=== PATIENT | female | born 1995 | race Caucasian/White ===

== ENCOUNTER → 2018-02-17 | Outpatient (REF) | payer OTHER ==
[2018-02-17 18:14] LABS: PLATELET COUNT, AUTOMATED 422 K/uL (150-450)
== END ==
PROVIDERS: ATTEND Nurse Practitioner Family
DX: R11.0 Nausea (principal); R19.7 Diarrhea, unspecified
CPT/HCPCS: 82040; 82247; 82274; 82310; 82374; 82435; 82565; 82947; 83630; 84075; 84132; 84155; 84295; 84450; 84460; 84520; 85025; 87045; 87177

== ENCOUNTER 2018-04-04 19:08 | Emergency (ER) | payer OTHER ==
--- NOTE | 2018-04-04 19:12 | ER Report ---
History and Physical Time Seen By MD: 19:13 HPI/ROS CHIEF COMPLAINT: Strep throat, vomiting HISTORY OF PRESENT ILLNESS: 22-year-old female presents ambulatory to the ER with vomiting all afternoon. She's been unable to keep anything down. She's been diagnosis strep pharyngitis. She's on amoxicillin. Patient and her mom are present. They report that she's been sick since nearly the beginning of school his recurrent episodes of strep dermatitis. They're wondering if consult with ENT as appropriate. Patient notes no photophobia or stiff neck. Patient denies diarrhea. REVIEW OF SYSTEMS: Respiratory: No cough, no dyspnea. Cardiovascular: No chest pain, no palpitations. Gastrointestinal: As above Musculoskeletal: No back pain. Allergies: Coded Allergies: No Known Drug Allergies (Unverified , 04/04/18) Home Meds Active Scripts Ondansetron Hcl (ZOFRAN) 4 Mg Tablet, 4 MG PO Q6H PRN for NAUSEA/VOMITING, #12 Prov:ADALBERTO HO DO 04/04/18 Hydrocodone Bit/Acetaminophen (HYDROCODON-ACETAMINOPHEN 5-325) 1 Each Tablet, 1 EACH PO Q4-6H PRN for PAIN, #10 TAKE ONE TABLET BY MOUTH EVERY 4-6 HOURS NEEDED FOR PAIN Prov:ADALBERTO HO DO 04/04/18 Reported Medications [ Control] No Conflict Check 04/04/18 Reviewed Nurses Notes: Yes Old Medical Records Reviewed: Yes Constitutional Vital Sign - Last 24 Hours 04/04/18 19:15 Temp 98.1 Pulse 104 Resp 12 B/P (MAP) 122/75 Pulse Ox 97 O2 Delivery Room Air Intake and Output 04/04/18 04/04/18 04/05/18 14:58 22:58 06:58 Intake Total 1000 ml Balance 1000 ml Physical Exam General Appearance: The patient is alert, has no immediate need for airway protection and no current signs of toxicity. Slightly pale appearing, skin, warm and dry, vital signs stable, afebrile HEENT: Pupils equal and round no injection. TMs normal, TMJs nontender, oropharynx with tonsillar hypertrophy and exudate noted. Consistent with acute tonsillitis. The right tonsil is larger than the left. No evidence of peritonsillar abscess Respiratory: Chest is non tender, lungs are clear to auscultation. Cardiac: regular rate and rhythm Gastrointestinal: Abdomen is soft and non tender, no masses, bowel sounds normal. Musculoskeletal: Neck: Neck is supple and non tender. Extremities have full range of motion and are non tender. Skin: No rashes or lesions. DIFFERENTIAL DIAGNOSIS: After history and physical exam differential diagnosis was considered for vomiting, adverse reaction to medication, vomiting secondary to strep pharyngitis. Medical Decision Making ED Course/Re-evaluation Clinical Indication for ER IV: Hydration, IV Access ED Course Patient was admitted to an examination room. H&P was done. The differential diagnoses was considered. Patient started been diagnosed with strep pharyngitis. She is on amoxicillin for cheese vomiting unable to keep her medications down. Patient's treated with IV fluid hydration with 1 L of normal saline, Zofran, Decadron, Toradol 30 motor grams fentanyl 50 g. On reevaluation she feels much better. She is given a popsicle, is able to consume at least A Popsicle without emesis. She feels much better. She would like to go home. She is discharged with a limited supply of Zofran, and hydrocodone. She is provided information to follow up with ENT, Dr. Blayne Domingo. Patient advised to continue ibuprofen 600 mg 3 times daily. Decision to Disposition Date: Apr 04, 2018 Decision to Disposition Time: 20:22 Depart Departure Latest Vital Signs Vital Signs Date Time Temp Pulse Resp B/P (MAP) Pulse Ox O2 Delivery O2 Flow Rate FiO2 04/04/18 19:15 98.1 104 12 122/75 97 Room Air Impression: Primary Impression: Acute pharyngitis Additional Impression: Vomiting Condition: Improved Disposition: HOME OR SELF-CARE Referrals: BLAYNE DOMINGO JR, MD [facility] Ondansetron Hcl (ZOFRAN) 4 Mg Tablet 4 MG PO Q6H PRN for NAUSEA/VOMITING, #12 Prov: ADALBERTO HO DO 04/04/18 Hydrocodone Bit/Acetaminophen (HYDROCODON-ACETAMINOPHEN 5-325) 1 Each Tablet 1 EACH PO Q4-6H PRN for PAIN, #10 TAKE ONE TABLET BY MOUTH EVERY 4-6 HOURS NEEDED FOR PAIN Prov: ADALBERTO HO DO 04/04/18 Patient Instructions: Acute Nausea and Vomiting (ED), Strep Throat (ED) Additional Instructions: Continue ibuprofen 200 mg 3 tablets 3 times a day Encourage fluid intake, especially popsicles, ice cream Follow-up with ENT, Dr. Blayne Domingo next week Return to the ER for any worsening Problem Qualifiers Primary Impression: Acute pharyngitis Pharyngitis/tonsillitis etiology: streptococcus Qualified Codes: J02.0 - Streptococcal pharyngitis Additional Impression: Vomiting Vomiting type: unspecified Vomiting Intractability: intractable Nausea presence: with nausea Qualified Codes: R11.2 - Nausea with vomiting, unspecified ADALBERTO HO DO Apr 04, 2018 19:12
[2018-04-04 19:15] VITALS: BP 122/75
[2018-04-04] MEDS ORDERED: DEXAMETHASONE SOD PHOS 10MG/ML IVP ONE (19:30)
[2018-04-04] MEDS ORDERED: KETOROLAC 30 MG/ML VIAL IVP ONE (19:30)
[2018-04-04] MEDS ORDERED: NS(*) 0.9% 1000 ML BAG 1,000 ML IV ONE (19:30)
[2018-04-04] MEDS ORDERED: fentaNYL CITR 100 MCG/2 ML AMP IVP ONE (19:30)
[2018-04-04] MEDS ORDERED: ONDANSETRON 4 MG/2 ML VIAL IVP ONE (19:55)
[2018-04-04] MEDS ORDERED: ONDANSETRON 4 MG/2 ML VIAL ONE (19:56)
[2018-04-04] MEDS ORDERED: ACET/HYDROC 5/325MG TH ER ONLY 2 TAB/BOTTLE PO ONE (20:20)
[2018-04-04] MEDS ORDERED: ONDANSETRON 4 MG ODT TH SL ONE (20:20)
[2018-04-04] MEDS ORDERED: ONDA4TAB97 PO (20:23)
[2018-04-04] MEDS ORDERED: LOR5/325 PO (20:23)
[2018-04-04] MEDS ORDERED: BIRTH CONTROL (20:25)
== END 2018-04-04 20:49 | disposition home or self-care (01) ==
LOC: ER 19:44
DX: J02.0 Streptococcal pharyngitis (principal); R11.2 Nausea with vomiting, unspecified
CPT/HCPCS: 96374; 96375; 99284; J1100; J1885; J2405; J3010; J7030; S0119

== ENCOUNTER 2018-04-06 07:59 | Emergency (ER) | payer OTHER ==
[~2018-04-06 07:59] MED LIST: BIRTH CONTROL; LOR5/325 PO; ONDA4TAB97 PO
[2018-04-06] MEDS ORDERED: AMOX-362 PO (08:09)
[2018-04-06] MEDS ORDERED: DEXAMETHASONE SOD 4 MG/ML VIAL PO ONE (09:15)
[2018-04-06] MEDS ORDERED: IOPAMIDOL 76% 75 ML INFUS BTL 75 ML ONE (09:31)
[2018-04-06 09:50] LABS: PLATELET COUNT, AUTOMATED 364 K/uL (150-450)
[2018-04-06] MEDS ORDERED: CLINDAMYCIN 600 MG/4 ML 600 MG in NS(*) 0.9% 100 ML BAG 100 ML IVPB ONE (11:30)
--- NOTE | 2018-04-06 11:34 | RADIOLOGY IMAGING REPORT ---
FACILITY: [facility] - [place] PATIENT NAME: Paola Cason : 1995 MR: [id number] V: [id number] EXAM DATE: ORDERING PHYSICIAN: BETY BONILLA TECHNOLOGIST: Location: [facility] [place] Patient: Paola Cason : 1995 Visit/Account:[id number] Date of Sevice: 04/06/2018 EXAMINATION: CT neck with IV contrast HISTORY: Right-sided neck pain, strep pharyngitis TECHNIQUE: CT was obtained through the neck following IV contrast administration. Sagittal and co elvie reformatted images were generated. 75 mL of IV Isovue-370 injected. One of the following dose optimization techniques was utilized in the performance of this exam: autom ated exposure control; adjustment of the mA and/or kV according to patient size; or use of iterative reconstruction technique. Specific details can be referenced in the facility's radiology CT exam ope rational policy. COMPARISON: None. FINDINGS: Parotid/submandibular and thyroid glands: Normal. Pharyngeal and retropharyngeal soft tissues: Mild to moderate nasopharyngeal lymphoid hypertrophy. Bilateral moderate tonsillar pillar enlargement partially effaces the oropharyngeal airway. Bilateral small linear hypodense regions noted within the tonsillar pillars, right greater than left. Largest hypodense area in the right tonsillar pillar measures 1.5 cm transverse by 0.3 cm AP by 1.4 cm cranio caudad. 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 Larynx/glottis and airway: Normal. Lymph nodes: Multiple varying sized bilateral jugular chain lymph nodes a few of which are mildly enl arged for example in the right lower neck, axial image 59. Mildly enlarged right level 2 lymph node. Fatty hilum noted within a few of these lymph nodes. 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 Visualized orbits / brain: No significant finding. Upper chest: Normal. Bones/sinuses/mastoid air cells: Right maxillary sinus mucous retention cysts. Are slightly fused C2- 3 disc space, fused C2-3 facet joints and partially fused C2 and C3 spinous processes. IMPRESSION: Multiple linear small hypodensities in the right greater than left tonsillar pillars concerning for m icroabscesses the largest measuring 1.5 x 0.3 x 1.4 cm in the right tonsillar pillar. Moderate additional tonsillar pillar hypertrophy partially effaces the oropharyngeal airway. Multiple bilateral varying sized jugular chain lymph nodes a few of which are mildly enlarged which a re favored to be reactive. Results were called to BETY BONILLA on 04/06/2018 11:29 AM. Report Dictated By: Miguelangel Tsai MD at 04/06/2018 11:11 AM Report E-Signed By: Miguelangel Tsai MD at 04/06/2018 11:29 AM WSN:[id number]
[2018-04-06] MEDS ORDERED: CLINDAMYCIN(*) 600 MG/NS 50 ML 50 ML IVPB ONE (11:45)
[2018-04-06] MEDS ORDERED: CLIN-60 PO (12:34)
--- NOTE | 2018-04-06 12:36 | ER Report ---
History and Physical Time Seen By MD: 08:30 Hx. of Stated Complaint: PT REPORTS THROAT PAIN STARTED AT 0400 TODAY, RECENTLY DX WITH STREP THROAT, PT TAKING HYDROCODONE FOR PAIN HPI/ROS CHIEF COMPLAINT: Worsening sore throat HISTORY OF PRESENT ILLNESS: Patient is recently been diagnosed with strep pharyngitis on Thursday. She started taking amoxicillin and has taken 5 doses. She presents because she is feeling slightly worse with sore throat and difficulty tolerating fluids. She feels she has more swelling slightly more on the right than left. She has not had fevers. She is not vomiting. She is tolerating by mouth and secretions though minimally. She has not had change in urination. She has no chest pain or trouble breathing. REVIEW OF SYSTEMS: Constitutional: No fever, no chills. Eyes: No discharge. ENT: above Cardiovascular: No chest pain, no palpitations. Respiratory: No cough, no shortness of breath. Gastrointestinal: No abdominal pain, no vomiting. Genitourinary: no dysuria or discoloration Musculoskeletal: No back pain. Skin: No rashes. Neurological: No headache. Remainder of the 14 system rev: Yes Allergies: Coded Allergies: No Known Drug Allergies (Unverified , 04/06/18) Home Meds Active Scripts Clindamycin Hcl (CLEOCIN HCL) 150 Mg Capsule, 150 MG PO Q6H for 10 Days, #40 CAPSULE Prov:BETY BONILLA MD 04/06/18 Ondansetron Hcl (ZOFRAN) 4 Mg Tablet, 4 MG PO Q6H PRN for NAUSEA/VOMITING, #12 Prov:ADALBERTO HO DO 04/04/18 Hydrocodone Bit/Acetaminophen (HYDROCODON-ACETAMINOPHEN 5-325) 1 Each Tablet, 1 EACH PO Q4-6H PRN for PAIN, #10 TAKE ONE TABLET BY MOUTH EVERY 4-6 HOURS NEEDED FOR PAIN Prov:ADALBERTO HO DO 04/04/18 Reported Medications Amoxicillin (AMOXICILLIN) 500 Mg Capsule, PO BID, #15 CAPSULE 04/06/18 [ Control] No Conflict Check 04/04/18 Hx Substance Use Disorder: No Constitutional Vital Sign - Last 24 Hours 04/06/18 04/06/18 04/06/18 04/06/18 08:05 08:05 08:14 08:29 Temp 98.0 Pulse 80 74 77 Resp 16 B/P (MAP) 119/70 (86) 119/70 Pulse Ox 93 93 94 O2 Delivery Room Air 04/06/18 04/06/18 04/06/18 04/06/18 08:44 08:59 09:14 09:29 Pulse 83 75 74 71 Pulse Ox 93 95 94 96 04/06/18 04/06/18 04/06/18 04/06/18 09:44 09:59 10:04 10:18 Pulse 76 ??? 79 B/P (MAP) 103/68 (80) Pulse Ox 97 96 04/06/18 04/06/18 04/06/18 04/06/18 10:30 10:34 11:00 11:04 Pulse ??? 83 B/P (MAP) 102/68 (79) 112/68 (83) Pulse Ox 96 04/06/18 04/06/18 04/06/18 04/06/18 11:30 11:34 12:00 12:05 Pulse 85 78 B/P (MAP) 108/66 (80) 103/68 (80) Pulse Ox 96 95 04/06/18 04/06/18 04/06/18 04/06/18 12:20 12:30 12:35 12:50 Pulse 79 81 77 B/P (MAP) 109/72 (84) Pulse Ox 95 95 96 04/06/18 13:00 B/P (MAP) ???/??? (2135) Physical Exam General Appearance: The patient is alert, has no immediate need for airway protection and no signs of toxicity. Eyes: Pupils equal and round no pallor or injection. ENT, Mouth: Mucous membranes are moist. Tonsils 2+ bilaterally with exudates, no midwife practitioner, uvula midline. Bilat submandibluar lad. Slight ttp r side lateral neck. Respiratory: There are no retractions, lungs are clear to auscultation. Cardiovascular: borderline tachycardic Neurological: alert, oriented, moves all ext Skin: Warm and dry, no rashes. Musculoskeletal: Extremities are nontender, nonswollen and have full range of motion. DIFFERENTIAL DIAGNOSIS: After history and physical exam differential diagnosis was considered for midwife practitioner, lemierre's, or other complication of strep. Medical Decision Making Data Points Result Diagram: 04/06/1892904/06/18929 Laboratory Hematology Test 04/06/18 09:30 Red Blood Count 4.42 M/uL (4.17-5.56) Mean Corpuscular Volume 82.3 fL (80.0-96.0) Mean Corpuscular Hemoglobin 27.5 pg (26.0-33.0) Mean Corpuscular Hemoglobin Concent 33.4 g/dL (32.0-36.0) Red Cell Distribution Width 13.7 % (11.5-14.5) Mean Platelet Volume 6.9 fL (7.2-11.1) Neutrophils (%) (Auto) 60.7 % (39.4-72.5) Lymphocytes (%) (Auto) 30.4 % (17.6-49.6) Monocytes (%) (Auto) 7.5 % (4.1-12.4) Eosinophils (%) (Auto) 1.3 % (0.4-6.7) Basophils (%) (Auto) 0.1 % (0.3-1.4) Nucleated RBC Relative Count (auto) 0.1 /100WBC Neutrophils # (Auto) 5.7 K/uL (2.0-7.4) Lymphocytes # (Auto) 2.9 K/uL (1.3-3.6) Monocytes # (Auto) 0.7 K/uL (0.3-1.0) Eosinophils # (Auto) 0.1 K/uL (0.0-0.5) Basophils # (Auto) 0.0 K/uL (0.0-0.1) Nucleated RBC Absolute Count (auto) 0.01 K/uL Sodium Level 137 mmol/L (137-145) Potassium Level 3.8 mmol/L (3.5-5.0) Chloride Level 104 mmol/L (98-107) Carbon Dioxide Level 26 mmol/L (22-31) Blood Urea Nitrogen 13 mg/dl (7-18) Creatinine 0.80 mg/dl (0.52-1.04) Glomerular Filtration Rate Calc > 60.0 Random Glucose 86 mg/dl (75-110) Calcium Level 8.7 mg/dl (8.4-10.2) Chemistry Test 04/06/18 09:30 White Blood Count 9.4 k/uL (4.5-11.0) Red Blood Count 4.42 M/uL (4.17-5.56) Hemoglobin 12.1 g/dL (12.0-16.0) Hematocrit 36.3 % (34.0-47.0) Mean Corpuscular Volume 82.3 fL (80.0-96.0) Mean Corpuscular Hemoglobin 27.5 pg (26.0-33.0) Mean Corpuscular Hemoglobin Concent 33.4 g/dL (32.0-36.0) Red Cell Distribution Width 13.7 % (11.5-14.5) Platelet Count 364 K/uL (150-450) Mean Platelet Volume 6.9 fL (7.2-11.1) Neutrophils (%) (Auto) 60.7 % (39.4-72.5) Lymphocytes (%) (Auto) 30.4 % (17.6-49.6) Monocytes (%) (Auto) 7.5 % (4.1-12.4) Eosinophils (%) (Auto) 1.3 % (0.4-6.7) Basophils (%) (Auto) 0.1 % (0.3-1.4) Nucleated RBC Relative Count (auto) 0.1 /100WBC Neutrophils # (Auto) 5.7 K/uL (2.0-7.4) Lymphocytes # (Auto) 2.9 K/uL (1.3-3.6) Monocytes # (Auto) 0.7 K/uL (0.3-1.0) Eosinophils # (Auto) 0.1 K/uL (0.0-0.5) Basophils # (Auto) 0.0 K/uL (0.0-0.1) Nucleated RBC Absolute Count (auto) 0.01 K/uL Glomerular Filtration Rate Calc > 60.0 Calcium Level 8.7 mg/dl (8.4-10.2) ED Course/Re-evaluation ED Course Pt presents with known strep pharyngitis that is not improving and possibly worsening. Though findings bilateral on exam, symptoms worse on r; after considerations of r/b, I obtained CT to r/o midwife practitioner v lemierre; I discussed with radiologist; while possible 'microabscesses' as per radiologist, he states that none would be drainable. Given symtpoms and findings, will change to clindamycin for better bacterial coverage. Pt feels comfortable on d/c and is amenable to this plan. D/w pt's mother over phone as well. Pt very well appearing and understands SRP's. Decision to Disposition Date: Apr 06, 2018 Decision to Disposition Time: 12:30 Depart Departure Latest Vital Signs Vital Signs Date Time Temp Pulse Resp B/P (MAP) Pulse Ox O2 Delivery O2 Flow Rate FiO2 04/06/18 13:00 ???/??? (1665) 04/06/18 12:50 77 96 04/06/18 08:05 98.0 16 Room Air Impression: Primary Impression: Acute bacterial tonsillitis Condition: Improved Disposition: HOME OR SELF-CARE Referrals: TANJA MORGAN JR, MD 5 Days New Scripts Clindamycin Hcl (CLEOCIN HCL) 150 Mg Capsule 150 MG PO Q6H for 10 Days, #40 CAPSULE Prov: BEYT BONILLA MD 04/06/18 Departure Forms: ER Transition Record, Off Work/School Form, School or Work Release?: School Number of days to be released: 2 Patient Portal Information Patient Instructions: Tonsillitis (ED) Additional Instructions: As we discussed, stop taking amoxicillin. Start clindamycin. Continue the entire course. Please return immediately if you are having worsening swelling, pain, discomfort. Please call the ENT clinic tomorrow for follow-up and reassessment. BETY BONILLA MD Apr 06, 2018 12:36
== END 2018-04-06 13:00 | disposition home or self-care (01) ==
LOC: ER 09:47
DX: J03.80 Acute tonsillitis due to other specified organisms (principal)
CPT/HCPCS: 36415; 70491; 85025; 96365; 99283; J1100; J3490; Q9967; 82310; 82374; 82435; 82565; 82947; 84132; 84295; 84520